=== PATIENT | female | born 1980 | race Caucasian/White ===

== ENCOUNTER 2022-07-25 12:08 | Day surgery (SDC) | payer BC, SELFPAY ==
[2022-07-25] VITALS (9 sets, daily range): BP systolic 137–193; BP diastolic 74–90; PULSE 54–89; RESP 15–20; TEMP 36.5–36.7; O2SAT 96–100; BMI 30.5
[2022-07-25] MEDS: lidocaine HCL 2 % MULTIDOSE 20 ML VIAL INJECTION (15:19)
--- NOTE | 2022-07-25 15:45 | SUR.OPER ---
FINGER TOURNIQUET APPLIED TO 5TH DIGIT ON RIGHT HAND AT 1523 AND REMOVED AT 1531. SKIN CLEAR AND PINK
--- NOTE | 2022-07-25 16:00 | PM.ORPRC ---
Procedure Note Date of procedure: 07/25/22 Procedure: PREOPERATIVE DIAGNOSIS: 1. Right small finger foreign body-splinter through the nail plate POSTOPERATIVE DIAGNOSIS: 1. Right small finger foreign body-splinter through the nail plate PROCEDURE: 1. Right small finger foreign body removal SURGEON: Ernesto Oglesby MD. INTERACTIVE MEDIA MARKETING DIRECTOR: CEM Vargas - Of note, an kindergarten assistant was critical for this case to aid in patient positioning, tissue retraction, limb manipulation/positioning, and closure. ANESTHESIA: Local anesthetic (50:50 mixture of 2% lidocaine plain and 0.5% marcaine plain)-digital block IMPLANTS: None TOURNIQUET: 9 minutes tourni-cot COMPLICATIONS: None evident INDICATIONS: The patient is a pleasant 41-year-old female who has experienced right small finger foreign body-splinter. She was cleaning the floors were house and was wiping underneath the bathroom door when unfortunately a of jaylen of the would pierced her dorsal nail plate. She got a large chunk of, but noticed a small piece was still through the nail plate. It was not on the side of it but had penetrated through was not retrievable. Upon evaluation, it was indeed felt prudent to remove this splinter to minimize the risk for infection and abscess, thus surgery was indicated. DESCRIPTION OF PROCEDURE: Following a thorough discussion of risks, benefits, and alternatives consent was obtained and the operative extremity was marked. The patient was brought to the operating room and placed supine on the operating table. No antibiotics were administered as this was planned to be a local case only. Proper time-out was performed identifying proper patient, site, and procedure. The operative extremity was prepped and draped in the appropriate sterile fashion using ChloraPrep. The limb was exsanguinated and the tourniquet inflated. The nail plate was mobilized along its dorsal eponychial fold and then along the more volar aspect the nail plate from the sterile matrix. This is on the ulnar At this stage, the tourniquet was deflated and hemostasis achieved. Closure was performed with 4-O nylon. Soft dressings were applied, and the patient was awoken/transferred to the recovery room in stable condition. PLAN: 1. Encourage elevation of the operative extremity. 2. Range of motion of the operative extremity/digits as tolerated. 3. Ibuprofen, acetaminophen and/or [place] as needed for pain. 4. Follow up with PA visit in 12-16 days for wound check and suture removal.
== END 2022-07-25 16:00 | disposition home or self-care (01) ==
PROVIDERS: Visit Provider Orthopaedic Surgery Sports Medicine
PROC: (CPT 11730; principal; 2022-07-25 13:15)
DX: S60.456A Superficial foreign body of right little finger, initial encounter (principal)
CPT/HCPCS: 11730